=== PATIENT | female | born 2005 | race Caucasian/White ===

== ENCOUNTER 2025-02-15 00:43 | Emergency (ER) | payer MEDICAID ==
[~2025-02-15] VITALS: Ht 162.6 cm; Wt 68.0 kg
[2025-02-15 00:58] VITALS: O2SAT 100
[2025-02-15 04:55] VITALS: BP 110/64; PULSE 70; RESP 18; TEMP 36.7; O2SAT 100
== END 2025-02-15 04:56 | disposition home or self-care (01) ==
LOC: ER 00:43
DX: T51.0X1A Toxic effect of ethanol, accidental (unintentional), initial encounter (principal); F10.129 Alcohol abuse with intoxication, unspecified; Y90.9 Presence of alcohol in blood, level not specified; Y92.89 Other specified places as the place of occurrence of the external cause
CPT/HCPCS: 99283